=== PATIENT | male | born 1965 | race Caucasian/White ===

== ENCOUNTER 2017-02-09 10:33 | Emergency (ER) | payer OTHER ==
[2017-02-09 11:03] LABS: BASOPHILS # (AUTO) 0.1 10^3/uL (0.0-0.1); BASOPHILS % (AUTO) 0.7 %; EOSINOPHILS # (AUTO) 0.2 10^3/uL (0.0-0.7); EOSINOPHILS % (AUTO) 2.5 %; HCT - HEMATOCRIT 45.7 % (42.0-52.0); HGB - HEMOGLOBIN 15.8 g/dL (14.0-18.0); LYMPHOCYTES # (AUTO) 0.7 10^3/uL (1.5-3.5); LYMPHOCYTES % (AUTO) 10.2 %; MEAN CORPUSCULAR HEMOGLOBIN 31.1 pg (27.0-31.0); MEAN CORPUSCULAR HGB CONC 34.6 g/dL (32.0-36.0); MEAN CORPUSCULAR VOLUME 89.8 fL (80.0-94.0); MEAN PLATELET VOLUME 7.7 fL (7.4-11.4); MONOCYTES # (AUTO) 1.7 10^3/uL (0.0-1.0); NEUTROPHILS # (AUTO) 4.4 10^3/uL (1.5-6.6); NEUTROPHILS % (AUTO) 62.6 %; RED BLOOD COUNT 5.09 10^6/uL (4.70-6.10); RED CELL DISTRIBUTION WIDTH 13.5 % (12.0-15.0); UNCORRECTED WHITE BLOOD COUNT 7.1 x10^3/uL; WHITE BLOOD COUNT 7.1 x10^3/uL (4.8-10.8)
[2017-02-09 11:13] LABS: ALBUMIN/GLOBULIN RATIO 1.5 (1.0-2.2); CALCIUM 9.5 mg/dL (8.5-10.3); POTASSIUM 4.5 mmol/L (3.5-5.0)
[2017-02-09] MEDS ORDERED: SODIUM CHLORIDE 0.9% 1,000 ML IV ONE (12:12)
[2017-02-09] MEDS ORDERED: IOPAMIDOL-300 100 ML VIAL IVP ONE (12:57)
--- NOTE | 2017-02-09 13:12 | CT Preliminary Report ---
Exam: CT Abdomen/Pelvis W/ IMPRESSION: 1. Negative exam. No CT finding to explain abdominal pain. 2. Mild colonic diverticulosis without acute diverticulitis. [facility] SITE ID: [id number]
--- NOTE | 2017-02-09 13:15 | CT Report ---
EXAM: CT ABDOMEN AND PELVIS EXAM DATE: 02/09/2017 12:56 PM. CLINICAL HISTORY: LLQ abd. pain. COMPARISONS: None. TECHNIQUE: Routine helical CT imaging was performed through the abdomen and pelvis. IV contrast: 100 cc Isovue-300 IV. Enteric contrast: No. Reconstructions: Coronal and sagittal. In accordance with CT protocol optimization, one or more of the following dose reduction techniques w ere utilized for this exam: automated exposure control, adjustment of mA and/or KV based on patient s ize, or use of iterative reconstructive technique. FINDINGS: Lung Bases: Unremarkable. Liver: Normal. No masses. Gallbladder/Bile Ducts: Unremarkable. Spleen: Normal. Pancreas: Normal. Adrenal Glands: Normal. Kidneys: Normal. No masses or hydronephrosis. Peritoneal Cavity/Bowel: There are a mild number of scattered diverticula in the colon. No focal angel l or mesenteric inflammatory process. No abnormal fluid or gas collection. No dilated loops or obstru ction. The appendix is well visualized and normal. Pelvic Organs: Normal. The bladder and visualized pelvic organs are within normal limits. Vasculature: No aneurysms or other significant abnormality. Bones: No significant abnormality. Other: None. IMPRESSION: 1. Negative exam. No CT finding to explain abdominal pain. 2. Mild colonic diverticulosis without acute diverticulitis. [facility] Referring Provider Line: [phone] SITE ID: [id number]
[2017-02-09 13:25] LABS: BILIRUBIN,URINE NEGATIVE (NEGATIVE); PH,URINE 5.5 PH (5.0-7.5)
[2017-02-09 13:26] LABS: UA CHARGE (STRIP ONLY) YES; UR CULTURE IF IND NOT INDICATED
--- NOTE | 2017-02-09 13:26 | ED Physician Documentation ---
PD HPI ABD PAIN - Stated complaint Stated Complaint: ABD PX/D - Chief complaint Chief Complaint: Abd Pain - History obtained from History obtained from: Patient, Family (Spouse) - History of Present Illness Timing - duration: Days (6) Timing - details: Waxing and waning Quality: Dull Location: Other (Mostly left-sided.) Worsened by: Eating Associated symptoms: Diarrhea. No: Fever, Nausea, Vomiting, Dysuria Similar symptoms before: Has not had sx before Recently seen: Clinic (Was sent here from the outpatient clinic where he initially presented.) - Additional information Additional information: The patient is a 51-year-old male who is visiting here from [place] and who presents with abdominal pain and diarrhea. He was initially seen in outpatient clinic and sent here for further evaluation and treatment. His symptoms started 6 days ago, and continue to wax and wane. His diarrhea is both loose and watery, with 3 episodes in the last 24 hours. He denies fever, nausea, vomiting, or dysuria. His symptoms are worse with eating. He denies history of similar symptoms in the past. He has had no abdominal surgery. No other family members are ill with similar symptoms. Review of Systems Constitutional: denies: Fever Ears: denies: Tinnitus/ringing Nose: denies: Congestion Throat: denies: Sore throat Cardiac: denies: Chest pain / pressure Respiratory: denies: Dyspnea, Cough GI: reports: Abdominal Pain, Diarrhea. denies: Nausea, Vomiting, Bloody / black stool : denies: Dysuria Skin: denies: Rash Musculoskeletal: denies: Back pain Neurologic: denies: Focal weakness, Numbness, Headache PD PAST MEDICAL HISTORY - Past Medical History Past Medical History: Yes Respiratory: Asthma Neuro: None Endocrine/Autoimmune: None GI: None - Past Surgical History Past Surgical History: No - Present Medications Home Medications: Ambulatory Orders Medication Instructions Recorded Confirmed Albuterol Sulf [Ventolin Hfa] 200 puffs INH 02/09/17 Fluticasone/Salmeterol [Advair 02/09/17 500-50 Diskus] HYDROcod/ACETAM 5/325 [[place] 5/325] 1 - 2 ea PO Q6H PRN #15 tablet 02/09/17 Loperamide HCl [Imodium A-D] 2 mg PO BID PRN #10 tablet 02/09/17 - Allergies Allergies/Adverse Reactions: Allergies Allergy/AdvReac Type Severity Reaction Status Date / Time ciprofloxacin [From Cipro] Allergy Unknown Verified 02/09/17 10:36 ciprofloxacin HCl * Allergy Unknown Verified 02/09/17 10:36 [From Cipro] Penicillins Allergy Unknown Verified 02/09/17 10:36 - Social History Does the pt smoke?: No Smoking Status: Never smoker Additional Social History: Visiting here from [place]. PD ED PE NORMAL - Vitals Vital signs reviewed: Yes (initially hypertensive.) - General General: Alert and oriented X 3, Well developed/nourished - HEENT HEENT: Atraumatic, EOMI, Pharynx benign - Neck Neck: No adenopathy, No JVD - Cardiac Cardiac: RRR, No murmur - Respiratory Respiratory: No respiratory distress, Clear bilaterally - Abdomen Abdomen: Normal bowel sounds, Soft, Other (Rotund abdomen, with mild tenderness to palpation in the left mid abdomen, without rebound tenderness or guarding.) - Back Back: No CVA TTP - Derm Derm: No rash - Extremities Extremities: No edema, No calf tenderness / cord - Neuro Neuro: Alert and oriented X 3, No motor deficit, Normal speech Results - Vitals Vitals: Vital Signs - 24 hr 02/09/17 02/09/17 13:15 14:03 Temperature 36.5 C Heart Rate 56 L 113 H Respiratory 16 20 Rate Blood Pressure 130/71 139/86 H O2 Saturation 97 98 Oxygen O2 Source Room air - Labs Labs: Laboratory Tests 02/09/17 02/09/17 02/09/17 10:55 10:55 13:05 WBC 7.1 RBC 5.09 Hgb 15.8 Hct 45.7 MCV 89.8 MCH 31.1 H MCHC 34.6 RDW 13.5 Plt Count 232 MPV 7.7 Neut # 4.4 Lymph # 0.7 L [place] # 1.7 H Eos # 0.2 Baso # 0.1 Absolute Nucleated RBC 0.00 Nucleated RBCs 0.0 Sodium 137 Potassium 4.5 Chloride 102 Carbon Dioxide 27 Anion Gap 8.0 BUN 17 Creatinine 1.0 Estimated GFR (MDRD) 78 L Glucose 96 Calcium 9.5 Total Bilirubin 1.0 AST 29 ALT 45 Alkaline Phosphatase 64 Total Protein 7.0 Albumin 4.2 Globulin 2.8 Albumin/Globulin Ratio 1.5 Amylase 36 Lipase 29 Urine Color YELLOW Urine Clarity CLEAR Urine pH 5.5 Ur Specific [place] 1.010 Urine Protein NEGATIVE Urine Glucose (UA) NEGATIVE Urine Ketones NEGATIVE Urine Occult Blood NEGATIVE Urine Nitrite NEGATIVE Urine Bilirubin NEGATIVE Urine Urobilinogen 0.2 (NORMAL) Ur Leukocyte Esterase NEGATIVE Ur Microscopic Review NOT INDICATED Urine Culture Comments NOT INDICATED - Rads (name of study) CT abd/pelvis w/IV contrast Radiology: Prelim report reviewed, EMP read contemporaneously, See rad report ( Negative exam. No CT finding to explain abdominal pain. Mild colonic diverticulosis without acute diverticulitis.) PD MEDICAL DECISION MAKING - ED course Complexity details: reviewed results, re-evaluated patient, considered differential, d/w patient, d/w family ED course: The patient's presentation is most significant for diarrhea and mild abdominal pain, suggestive of gastroenteritis. CBC and chemistry panel are both normal, as is urinalysis. CT scan of his abdomen and pelvis reveals no evidence of diverticulitis or other abnormality to explain his symptoms. Treatment in the emergency department included administration of normal saline 1 L IV. He declined pain medication or antiemetic while in the emergency department, as his symptoms had significantly improved over the course of the past few hours. He is being discharged with prescriptions for Imodium and for Vicodin, 15 tablets. I discussed with him and his the expected course of illness, symptomatic treatment, as well as potentially worrisome signs or symptoms that should prompt reevaluation in the emergency department. Departure - Departure Disposition: 01 Home, Self Care Clinical Impression: Abdominal pain Qualifiers: Abdominal location: generalized Qualified Code(s): R10.84 - Generalized abdominal pain Diarrhea Qualifiers: Diarrhea type: unspecified type Qualified Code(s): R19.7 - Diarrhea, unspecified Condition: Stable Instructions: ED Diarrhea Viral, ED Abdominal Pain Unkn Cause Prescriptions: Loperamide HCl [Imodium A-D] 2 mg PO BID PRN #10 tablet PRN Reason: Diarrhea HYDROcod/ACETAM 5/325 [[place] 5/325] 1 - 2 ea PO Q6H PRN #15 tablet PRN Reason: Pain Comments: Drink plenty of fluids. Avoid dairy products, greasy or fatty foods, or spicy foods until feeling better. You can use Lomotil as prescribed if needed for diarrhea. You can use Vicodin as prescribed if needed for pain. Return to the emergency department if you develop increasing abdominal pain, persistent vomiting, dehydration, or otherwise worsening symptoms. Discharge Date/Time: 02/09/17 14:03
[2017-02-09 14:04] VITALS: BP 139/86
== END 2017-02-09 14:03 | disposition home or self-care (01) ==
LOC: ED 10:33
DX: R10.84 Generalized abdominal pain (principal); R19.7 Diarrhea, unspecified
CPT/HCPCS: 36415; 74177; 80053; 81003; 82150; 83690; 85025; 99284; Q9967; 81001; 87086